=== PATIENT | male | born 1970 | race African-American/Black ===

== ENCOUNTER 2017-01-16 19:34 | Emergency (ER) | payer OTHER ==
[~2017-01-16] VITALS: Ht 172.7 cm; Wt 93.7 kg
[~2017-01-16 19:34] MED LIST: HYDR25TA4 PO; PHEN-905 PO
[2017-01-16 19:37] VITALS: TEMP 37.1; Ht 172.7 cm; Wt 93.7 kg
--- NOTE | 2017-01-16 20:29 | DIAGNOSTIC IMAGING REPORT ---
RIGHT HUMERUS MIN 2 VIEWS ROUTINE CLINICAL HISTORY: Right elbow pain. Possible distal biceps tear. COMPARISON: None FINDINGS: No acute fracture of the right humerus is present. There is joint space narrowing with calcific/ossific densities adjacent to the acromioclavicular joint. Lateral view demonstrates possible abnormal contour with bulging of the biceps. IMPRESSION: 1. No acute fracture of the right humerus. 2. Moderate to severe osteoarthritis of the right acromioclavicular joint. 3. Possible abnormal contour with bulging of the biceps shown on lateral projection. This is suboptimally assessed by radiography but could be due to a distal biceps tear with retraction. Electronically signed by: Leonard Key M.D. 01/16/2017 8:28 PM Dictated Date/Time: 01/16/2017 8:25 PM
--- NOTE | 2017-01-16 20:30 | DIAGNOSTIC IMAGING REPORT ---
RIGHT ELBOW MIN 3 VIEWS ROUTINE CLINICAL HISTORY: Right elbow pain. Possible distal biceps tear. COMPARISON: None FINDINGS: Alignment of the right elbow is anatomic. There is no fracture or joint effusion. There is minimal spurring of the olecranon at the insertion of triceps. IMPRESSION: No acute fracture or joint effusion of the right elbow. Electronically signed by: Leonard Key M.D. 01/16/2017 8:28 PM Dictated Date/Time: 01/16/2017 8:26 PM
[2017-01-16] MEDS ORDERED: IBUP-1050 PO (20:37)
[2017-01-16] MEDS ORDERED: FEXO1TAB49 PO (20:37)
[2017-01-16] MEDS ORDERED: PRLSR20 PO (20:37)
--- NOTE | 2017-01-16 20:53 | EMERGENCY ROOM VISIT NOTE ---
History First contact with patient: 19:36 Chief Complaint: ELBOW PAIN/INJURY Stated Complaint: FALL/ ARM PAIN History of Present Illness The patient is a 46 year old male who presents to the Emergency Room with complaints of right elbow pain. The patient states that he was at work and picked up a heavy trashcan. He states that he felt a sudden pop in his right arm in the elbow area and dropped the trashcan. He reports the pain in the right arm and difficulty flexing the arm. He rates his discomfort as 6/10. He denies any previous issues with this arm. He denies any numbness or weakness. He denies any other injuries. Review of Systems A complete 10 point review of systems was reviewed with the patient with pertinent positives and negatives as per history of present illness. All else were negative. Past Medical/Surgical History Medical Problems: (1) Arthritis (2) Tendonitis Family History Diabetes mellitus FH: heart disease FHx: cancer Hypertension Social History Smoking Status: Never Smoker Alcohol Use: heavy Drug Use: none Marital Status: single Occupation Status: employed Current/Historical Medications Scheduled Hydrochlorothiazide (Hctz), 25 MG PO DAILY Scheduled PRN Fexofenadine Hcl (Amalia Allergy), 1 TAB PO BID PRN for ALLERGIC REACTION Ibuprofen (Advil), 800 MG PO BID PRN for Pain Omeprazole (Prilosec), 20 MG PO DAILY PRN for Dyspepsia Physical Exam Vital Signs Date Time Temp Pulse Resp B/P (MAP) Pulse Ox O2 Delivery O2 Flow Rate FiO2 01/16/17 21:06 66 16 115/72 98 01/16/17 19:37 37.1 76 16 120/88 99 Room Air Physical Exam VITALS: Vitals are noted on the nurse's note and reviewed by myself. Vital signs stable. GENERAL: This is a 46-year-old male, in no acute distress, nondiaphoretic, well- developed well-nourished. HEART: Regular rate and rhythm without murmurs gallops or rubs. LUNGS: Clear to auscultation bilaterally without wheezes, rales or rhonchi. MUSCULOSKELETAL: There is tenderness to palpation in the right antecubital fossa at the insertion of the distal biceps tendon. There is asymmetry of the biceps muscle compared to the left arm. The patient has pain with flexion of the right arm. NEURO: Patient was alert and oriented to person place and time. Medical Decision & Procedures ER Provider Diagnostic Interpretation: RIGHT ELBOW MIN 3 VIEWS ROUTINE FINDINGS: Alignment of the right elbow is anatomic. There is no fracture or joint effusion. There is minimal spurring of the olecranon at the insertion of triceps. IMPRESSION: No acute fracture or joint effusion of the right elbow. RIGHT HUMERUS MIN 2 VIEWS ROUTINE FINDINGS: No acute fracture of the right humerus is present. There is joint space narrowing with calcific/ossific densities adjacent to the acromioclavicular joint. Lateral view demonstrates possible abnormal contour with bulging of the biceps. IMPRESSION: 1. No acute fracture of the right humerus. 2. Moderate to severe osteoarthritis of the right acromioclavicular joint. 3. Possible abnormal contour with bulging of the biceps shown on lateral projection. This is suboptimally assessed by radiography but could be due to a distal biceps tear with retraction. Medical Decision Differential diagnosis includes fracture, sprain, contusion, biceps tendon rupture, among others. The patient was evaluated as above. Physical exam and x-rays are consistent with a rupture of the distal biceps tendon. Patient was placed in an arm sling and will follow-up with orthopedics. Conservative measures were discussed. He verbalized understanding of my assessment and treatment plan and was discharged home in good condition. Medication Reconcilliation Current Medication List: was personally reviewed by me Blood Pressure Screening Patient's blood pressure: Normal blood pressure Impression Primary Impression: Biceps tendon rupture Departure Information Dispostion Home / Self-Care Condition GOOD Referrals No Doctor, Assigned (PCP) Morales Sorensen D.O. Patient Instructions My [facility] Additional Instructions For pain control, you can use the following [id number] medicines (if >12 yo): - Regular strength (325mg/tab) Tylenol (acetaminophen) 2 tabs every 4-6 hours as needed. Do not exceed 12 tablets in a 24 hour period. Avoid taking more than 4 grams (4000 mg) of Tylenol per day. This includes any other sources of acetaminophen you may take on a regular basis. - Regular strength (200 mg/tab) Advil (ibuprofen) 1-2 tabs every 4-6 hours as needed. Do not exceed a dose of 3200 mg per day. Wear the arm sling until follow-up with orthopedics. Call orthopedics on Wednesday to schedule a follow-up appointment next week. Apply ice to the arm for swelling and pain. Return to the emergency department with worsening or new/concerning symptoms. Problem Qualifiers Primary Impression: Biceps tendon rupture Encounter type: initial encounter Laterality: right Qualified Codes: S46.211A - Strain of muscle, fascia and tendon of other parts of biceps, right arm, initial encounter
[2017-01-16 21:06] VITALS: BP 115/72; PULSE 66; O2SAT 98
[2017-01-21] MEDS ORDERED: ACET-1256 PO (14:39)
== END 2017-01-16 21:06 | disposition home or self-care (01) ==
LOC: EDBD 19:34 → C.EDA 19:35
DX: S46.211A Strain of muscle, fascia and tendon of other parts of biceps, right arm, initial encounter (principal); X58.XXXA Exposure to other specified factors, initial encounter; M19.90 Unspecified osteoarthritis, unspecified site; Z79.899 Other long term (current) drug therapy; Z83.3 Family history of diabetes mellitus; Z82.49 Family history of ischemic heart disease and other diseases of the circulatory system; Z80.9 Family history of malignant neoplasm, unspecified

== ENCOUNTER → 2017-01-25 | Day surgery (SDC) | payer OTHER ==
[2017-01-21 14:40] VITALS: Ht 172.7 cm; Wt 93.2 kg
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
[~2017-01-25] VITALS: Ht 172.7 cm; Wt 93.2 kg
[~2017-01-25] MED LIST changes: +ACET-1256 PO; +ATROPINE SULFATE 0.1 MG/ML 5ML SYR IV PRN; +BUPIVACAINE 0.5 % 5 MG/1 ML MPF 30ML VIAL ONE; +BUPIVACAINE/EPINEPHRINE 0.5% MPF 1:200,000 10 ML VIAL ONE; +CEFAZOLIN 2000 MG/60 ML D5W IV SCH; +DEXAMETHASONE SOD INJ 4 MG/ML VIAL ONE; +ESMOLOL HCL 10 MG/ML 10 ML VIAL ONE; +EpHEDrine SULFATE INJ 50 MG/ML AMP IV PRN; +FENTANYL CITRATE INJ 50 MCG/1 ML 2 ML VIAL ONE; +FEXO1TAB49 PO; +HYDROmorphone INJ 0.5 MG/0.5 ML SYR ONE; +HYDROmorphone INJ 1 MG/ML SYR IV PRN; +IBUP-1050 PO; +KETOROLAC TROMETHAMINE 30 MG/ML VIAL ONE; +LABETALOL HCL IV 5 MG/ML 20ML IV ONE; +LACTATED RINGER'S 1000ML 1,000 ML IV SCH; +LIDOCAINE HCL 2% 2 ML VIAL (20MG/ML) ONE; +LIDOCAINE MPF 1% INJ 30 ML SDV (L&D) INFIL ONE; +MIDAZOLAM HCL 1 MG/ML 2ML VIAL ONE; +MoRPHine SULFATE 2 MG/ML CARP IV PRN; +MoRPHine SULFATE 4 MG/ML 1 ML CARP\\VIAL IV PRN; +NURSING VERBAL MED ORDER ONE; +ONDANSETRON INJ 2 MG/ML 2 ML VIAL IV PRN; +ONDANSETRON INJ 2 MG/ML 2 ML VIAL ONE; +OXYCODONE/ACETAMINOPHEN 5-325 TAB PO PRN; -PHEN-905 PO; +PRLSR20 PO; +PROMETHAZINE HCL INJ 6.25 MG in SODIUM CHLORIDE 0.9% 50ML 50 ML IV PRN; +PROPOFOL IV EMULSION 10 MG/ML 20 ML VIAL IV ONE; +SODIUM CHLORIDE 0.9% INJ 10 ML VIAL ONE
--- NOTE | 2017-01-25 06:57 | History & Physical Bridge - SC ---
H&P Re-Evaluation Bridge Note: I have examined the patient, reviewed the History & Physical and in the interval since the performance of the History & Physical I have noted the following changes of clinical significance: No changes noted
--- NOTE | 2017-01-25 12:03 | Discharge Instructions-SurgCtr ---
Discharge Instructions Date of Service Jan 25, 2017. Visit Reason for Visit: Right Distal Biceps Rupture Discharge Discharge Diagnosis / Problem: Status post Right distal biceps repair Discharge Goals Goal(s): Decrease discomfort, Improve function, Increase independence Activity Recommendations Activity Limitations: per Instructions/Follow-up section Lifting Limitations: until after follow-up appointment (No lifting) May Resume Sexual Activity: when tolerated Shower/Bathe: may shower/bathe in 3 days Driving or Machine Use: Not while on narcotics or in splint Anesthesia . Post Anesthesia Instructions: If you have had General Anesthesia or IV Sedation: * Do not drive today. * Resume driving when surgeon permits. * Do not make important decisions or sign legal documents today. * Call surgeon for: 1. Temperature elevations greater than 101 degrees F. 2. Uncontrollable pain. 3. Excessive bleeding. 4. Persistent nausea and vomiting. 5. Medication intolerance (nausea, vomiting or rash). * For nausea and vomiting use only clear liquids such as: tea, soda, bouillon until nausea subsides, then gradually increase diet as tolerated. * If you have any concerns or questions, call your surgeon's office. If physician is unavailable and it is an emergency, call 911 or go to the nearest emergency room. . Instructions / Follow-Up Instructions / Follow-Up Dr. Weston in 10-15 days. PT in 2-3 days. Diet Recommendations Home Diet: resume previous diet Procedures Procedures Performed: Right Distal Biceps Tendon Repair Pending Studies Studies pending at discharge: no Work Instructions Lifting Limitations: no heavy lifting Medical Emergencies . Who to Call and When: Medical Emergencies: If at any time you feel your situation is an emergency, please call 911 immediately. . Non-Emergent Contact Non-Emergency issues call your: Surgeon Call Non-Emergent contact if: temperature is above 101.5, your pain is not controlled, wound has increased drainage, wound has increased redness . . "Provider Documentation" section prepared by Nigel Weston. .
--- NOTE | 2017-01-25 12:09 | [facility] Operative Report ---
Operative Report Operative Date Jan 25, 2017. Pre-Operative Diagnosis Right Distal Biceps Tendon Tear Post-Operative Diagnosis Same Procedure(s) Performed Right Distal Biceps Tendon Repair Surgeon Dr. Weston Anode Machine Operator Surgeon(s) Deidra Zavaleta, Fellow Deidra Quick PA-C Estimated Blood Loss 5 ml Findings Near complete rupture right distal biceps tear. Fluids (cc crystalloids) 1750 Specimens None Drains n/a Anesthesia GET Complication(s) None Disposition Recovery Room / PACU (Stable) Implants JUGGERKNOT 2.9 MM DOUBLE LOADED X2 (BIOMET) Indications The patient is a 46 y.o. male, who sustained a right distal biceps rupture. His options of conservative vs surgical intervention with an open repair were discussed, along with the risks and benefits of both. The patient understands the risks of surgery, which include but are not limited to: bleeding, infection , re-operation, damage to nerves and arteries, failure of the repair, weakness, stiffness, continued pain and DVT. The patient understands all of these instructions and explanations, all of their questions have been satisfactorily addressed. The patient has elected to proceed with surgery and the informed consent was signed. Description of Procedure The patient was taken to the Operating Room and placed in the supine position on the operating table. After general anesthetic was administered a multidisciplinary time-out was performed identifying my initials on the right upper limb as the correct and operative limb. Prior to the incision being made , 2 grams of intravenous Ancef were given. The right arm was prepped and draped in the standard orthopaedic sterile fashion. The planned transverse incision approximately 3 cm distal to the flexion crease of the elbow was marked. The incision was injected with a 50:50 mixture of 1% Lidocaine plain and 0.5% Marcaine plain for a total of 10 cc. The limb was exsanguinated via gravity and a tourniquet was inflated to 250 mmHg. The skin 4 cm incision was made and careful dissection to identify the medial antebrachial cutaneous nerve which was protected throughout. Blunt dissection was also used to find the distal end of the Biceps which still had one small strand connected to the bicipital tuberosity of the radius. The stump was well adhered to scar tissue within the Biceps envelope. The overlying recurrent vessels were ligated with silk ties in the standard fashion. The Radial tuberosity was identified with fluoroscopy, palpation, visualization, and any remaining soft tissue was debrided. The distal stump of the biceps was debrided back to normal tissue with a Metzenbaum scissors. A stay stitch was placed to enable traction. Any further adhesions were bluntly dissected off the tendon, to allow good mobilization of the tendon. The radial tuberosity was then lightly decorticated with a small angel. With the forearm fully supinated two 2.9 mm Juggerknot Suture anchors were placed in the standard fashion in the radial tuberosity 1 cm apart. Then 1 strand from each suture was run up the biceps tendon in a Krackow fashion and they were tied together, the ends of the suture were passed through the tendon and tied on the posterior aspect to leave the anterior not stack flush with the tendon. The other two ends of these sutures were used to reduce the distal biceps to the radial tuberosity. While holding the tendon reduced the other 2 remaining sutures were passed through the tendon and tied, holding the tendon in place. The sutures that were used to reduce the tendon were the passed back through the biceps and tied in the standard fashion. there was excellent tendon contact to the bicipital tuberosity with no gapping noted. The wound was copiously irrigated. There was no tension on the repair with the arm extended to 20 degrees. The tourniquet was released and there was good hemostasis. The subcutaneous layer was closed with 3-0 Vicryl. The skin was closed with 4- 0 Monocryl in a subcuticular fashion without knots. This was then further reinforced with Dermabond. Steri-Strips were placed overtop once the Dermabond was dry. The incision was covered with 4x4's, ABD, sterile cast padding, a posterior splint at 90 degrees of flexion and supinated, and an KAL. A sling was placed. The sponge and needle counts were correct. While he was waking up, his motor to his median, radial, ulnar, AIN, PIN were intact. POST-OP INSTRUCTIONS: Pain medicine prescription was given pre-operatively to be taken as needed. No lifting. The patient is not to remove his splint. PT instructions were given. The patient will follow up with me in 10-15 days. I attest to the content of the Intraoperative Record and any orders documented therein. Any exceptions are noted below. Copy To Mark Anthony Zavaleta M.D.
--- NOTE | 2017-01-25 12:19 | [facility] Operative Report ---
Operative Report Operative Date Jan 25, 2017. Pre-Operative Diagnosis Right Distal Biceps Tendon Tear Post-Operative Diagnosis Same Procedure(s) Performed Right Distal Biceps Tendon Repair Surgeon Dr. Weston Waste Disposal Leakage Tester Surgeon(s) Deidra Zavaleta, Fellow Deidra Quick PA-C Estimated Blood Loss 5 ml Findings SAME Fluids (cc crystalloids) 1750 Specimens None Drains none Anesthesia general Complication(s) None Disposition Recovery Room / PACU Implants see Dr. Weston's note Indications sustained injury to left distal biceps, proper imaging obtained, surgery recommended, consents signed Description of Procedure taken to the OR, prepped and draped, I was present the entire case, please see Dr. Weston's op note for further detail I attest to the content of the Intraoperative Record and any orders documented therein. Any exceptions are noted below.
[2017-01-25] MEDS: FENTANYL CITRATE INJ 50 MCG/1 ML 2 ML VIAL IV PRN ×2 (12:32→12:52)
[2017-01-25 13:15] VITALS: TEMP 37.1
--- NOTE | 2017-01-25 13:32 | Anesthesiology Progress Note ---
Anesthesia Post Op Note Date & Time Jan 25, 2017 at 13:32 Vital Signs Pain Intensity: 8 Vital Signs Past 12 Hours Date Time Temp Pulse Resp B/P (MAP) Pulse Ox O2 Delivery O2 Flow Rate FiO2 01/25/17 13:15 37.1 86 16 139/94 (109) 93 Room Air 01/25/17 13:02 86 19 95 01/25/17 13:02 87 19 01/25/17 13:01 146/91 01/25/17 13:00 37.1 84 16 146/91 94 Room Air 01/25/17 12:57 84 16 94 01/25/17 12:57 85 16 01/25/17 12:56 140/84 01/25/17 12:52 88 8 01/25/17 12:52 86 8 97 01/25/17 12:51 149/100 01/25/17 12:47 89 18 01/25/17 12:47 89 18 94 01/25/17 12:46 160/91 01/25/17 12:42 86 19 01/25/17 12:42 86 19 96 01/25/17 12:41 153/93 01/25/17 12:37 90 13 90 01/25/17 12:37 88 13 01/25/17 12:36 144/96 01/25/17 12:34 88 0 01/25/17 12:34 87 0 99 01/25/17 12:31 148/98 01/25/17 12:29 90 17 99 01/25/17 12:29 91 17 01/25/17 12:26 150/101 01/25/17 12:24 100 17 01/25/17 12:24 102 17 01/25/17 12:21 156/102 01/25/17 12:19 36.5 100 20 156/102 98 Diffusion Mask 6 01/25/17 06:45 36.6 86 20 136/107 (117) 94 Room Air Notes Mental Status: alert / awake / arousable, participated in evaluation Pt Amnestic to Procedure: Yes Nausea / Vomiting: adequately controlled Pain: adequately controlled Airway Patency, RR, SpO2: stable & adequate BP & HR: stable & adequate Hydration State: stable & adequate Anesthetic Complications: no major complications apparent
[2017-01-25 13:45] VITALS: BP 139/89; PULSE 82; O2SAT 94
== END | disposition home or self-care (01) ==
LOC: X.SURG 06:28
PROVIDERS: ATTEND Orthopaedic Surgery Sports Medicine
DX: S46.211A Strain of muscle, fascia and tendon of other parts of biceps, right arm, initial encounter (principal); X50.0XXA Overexertion from strenuous movement or load, initial encounter; I10 Essential (primary) hypertension; F17.210 Nicotine dependence, cigarettes, uncomplicated; Z79.899 Other long term (current) drug therapy

== ENCOUNTER 2018-01-25 19:17 | Emergency (ER) | payer OTHER ==
[~2018-01-25] VITALS: Ht 172.7 cm; Wt 96.9 kg
[~2018-01-25 19:17] MED LIST changes: -ATROPINE SULFATE 0.1 MG/ML 5ML SYR IV PRN; -BUPIVACAINE 0.5 % 5 MG/1 ML MPF 30ML VIAL ONE; -BUPIVACAINE/EPINEPHRINE 0.5% MPF 1:200,000 10 ML VIAL ONE; -CEFAZOLIN 2000 MG/60 ML D5W IV SCH; -DEXAMETHASONE SOD INJ 4 MG/ML VIAL ONE; -ESMOLOL HCL 10 MG/ML 10 ML VIAL ONE; -EpHEDrine SULFATE INJ 50 MG/ML AMP IV PRN; -FENTANYL CITRATE INJ 50 MCG/1 ML 2 ML VIAL ONE; -HYDROmorphone INJ 0.5 MG/0.5 ML SYR ONE; -HYDROmorphone INJ 1 MG/ML SYR IV PRN; -KETOROLAC TROMETHAMINE 30 MG/ML VIAL ONE; -LABETALOL HCL IV 5 MG/ML 20ML IV ONE; -LACTATED RINGER'S 1000ML 1,000 ML IV SCH; -LIDOCAINE HCL 2% 2 ML VIAL (20MG/ML) ONE; -LIDOCAINE MPF 1% INJ 30 ML SDV (L&D) INFIL ONE; -MIDAZOLAM HCL 1 MG/ML 2ML VIAL ONE; -MoRPHine SULFATE 2 MG/ML CARP IV PRN; -MoRPHine SULFATE 4 MG/ML 1 ML CARP\\VIAL IV PRN; -NURSING VERBAL MED ORDER ONE; -ONDANSETRON INJ 2 MG/ML 2 ML VIAL IV PRN; -ONDANSETRON INJ 2 MG/ML 2 ML VIAL ONE; -OXYCODONE/ACETAMINOPHEN 5-325 TAB PO PRN; -PROMETHAZINE HCL INJ 6.25 MG in SODIUM CHLORIDE 0.9% 50ML 50 ML IV PRN; -PROPOFOL IV EMULSION 10 MG/ML 20 ML VIAL IV ONE; -SODIUM CHLORIDE 0.9% INJ 10 ML VIAL ONE
[2018-01-25 19:19] VITALS: TEMP 36.4; Ht 172.7 cm; Wt 96.9 kg
--- NOTE | 2018-01-25 19:40 | EMERGENCY ROOM VISIT NOTE ---
History First contact with patient: 19:22 Chief Complaint: ANKLE PAIN Stated Complaint: INJURED ANKLE History of Present Illness The patient is a 47 year old male who presents to the Emergency Room with complaints of severe pain into the right ankle and foot for the last 3 days. He denies any injury. He woke up with the pain. He has tried ibuprofen with minimal relief. He also has tried an Jesus Manuel wrap. The patient intermittently gets pain in this area. He is able to bear weight. The pain is worse with dorsiflexion and plantarflexion. He denies any fever or chills. Review of Systems 6 system review negative. Please see pertinent positives in the history of present illness section. Past Medical/Surgical History Medical Problems: (1) Arthritis (2) Tendonitis Family History Diabetes mellitus FH: heart disease FHx: cancer Hypertension Social History Smoking Status: Current Every Day Smoker Alcohol Use: heavy Drug Use: marijuana Marital Status: single Occupation Status: employed Current/Historical Medications Scheduled Hydrochlorothiazide (Hctz), 25 MG PO QAM Scheduled PRN Acetaminophen (Tylenol), 1,000 MG PO Q6H PRN for Pain Ibuprofen (Advil), 800 MG PO BID PRN for Pain Physical Exam Vital Signs Date Time Temp Pulse Resp B/P (MAP) Pulse Ox O2 Delivery O2 Flow Rate FiO2 01/25/18 19:19 36.4 78 20 153/91 97 Room Air Physical Exam VITALS: Vitals are noted on the nurse's note and reviewed by myself. Vital signs stable. GENERAL: 47-year-old male, in no acute distress, nondiaphoretic, well-developed well-nourished. SKIN: The skin was without rashes, erythema, edema, or bruising. HEAD: Normocephalic atraumatic. MUSCULOSKELETAL: RLE: Tenderness to palpation over the medial malleolus. Tenderness to palpation over the extensor tendons/proximal dorsum of the right foot. DP pulse +2. No tenderness over the lateral malleolus. Pain with dorsiflexion and to a lesser extent plantarflexion. No pain over the first MTP joint. Capillary refill in the toes is intact. Sensation in the toes is intact. No tenderness over the proximal tibia or fibula. NEURO: Patient was alert and oriented to person place and time. Normal sensation to touch. No focal neurological deficits. Medical Decision & Procedures ER Provider Diagnostic Interpretation: Right ankle/foot x-rays IMPRESSION: 1. No acute fractures 2. Fourth metatarsal periosteal thickening/spurring which appears chronic. 3. Mild degenerative change Electronically signed by: Matty Holland M.D. 01/25/2018 8:14 PM Dictated Date/Time: 01/25/2018 8:13 PM The status of this report is Signed. Draft = Not yet reviewed or approved by Radiologist. Signed = Reviewed and approved by Radiologist. IMPRESSION: 1. No acute fractures 2. Subtle lucency involving the medial talar dome. Osteochondral is desiccated cannot be excluded. Electronically signed by: Matty Holland M.D. 01/25/2018 8:12 PM Dictated Date/Time: 01/25/2018 8:10 PM The status of this report is Signed. Draft = Not yet reviewed or approved by Radiologist. Signed = Reviewed and approved by Radiologist. CT right lower extremity without contrast IMPRESSION: 1. No acute fractures 2. Chronic spurring involving the proximal third fourth metatarsals 3. Chronic navicular spurring 4. Subchondral cystic changes within the medial patellar dome likely representing an old osteochondral lesion. There are secondary arthritic changes the tibiotalar joint Electronically signed by: Matty Holland M.D. 01/25/2018 8:55 PM Dictated Date/Time: 01/25/2018 8:48 PM The status of this report is Signed. Draft = Not yet reviewed or approved by Radiologist. Signed = Reviewed and approved by Radiologist. ED Course The patient was seen and examined Imaging was performed and reviewed The patient was reassessed and resting comfortably. We discussed his results. He voiced understanding, was comfortable being discharged home. The patient was fitted for a walking boot He was given a home pack of Friendship Discharge instructions were reviewed, and he was discharged in good condition Medical Decision Differential diagnosis: Fracture, strain, lesion, gout, infection among others were entertained This patient is a 47-year-old male that presents to the emergency department complaining of ongoing right foot and ankle pain. On exam, he did have some tenderness without any gross deformity. Ultimately, a CT was performed. There are chronic changes involving the talar bone, navicular bone and several metatarsals. I believe this is a source of his discomfort. There were no acute fractures or dislocations. The patient was fitted in a walking boot. He was given a short course of narcotics, and told to continue taking ibuprofen. He will call Dr. Weston in the morning for follow-up Of note, the patient has run out of his hydrochlorothiazide. He was given a 2- week course, and told to follow-up with his PCP. This chart was completed in part utilizing [employer] Speech Voice Recognition software. Attempts were made to minimize the grammatical errors, random word insertions, pronoun errors and incomplete sentences. Any formal questions or concerns about the content, text or information contained within the body of this dictation should be directly addressed to the provider for clarification. Medication Reconcilliation Current Medication List: was personally reviewed by me Blood Pressure Screening Patient's blood pressure: Elevated blood pressure Impression Primary Impression: Right foot pain Departure Information Dispostion Home / Self-Care Condition GOOD Prescriptions Hydrochlorothiazide (HCTZ) 25 Mg Tab 1 TAB PO DAILY for 14 Days, #14 TAB Prov: Anika Cardenas PA-C 01/25/18 Hydrocodone/Acetaminophen 5MG/325MG (Friendship 5MG/325MG) Tab 1-2 TABLET PO Q4H Y for Pain, #15 TAB For Initial Treatment Prov: Anika Cardenas PA-C 01/25/18 Referrals Nigel Weston MD (PCP) Patient Instructions My [facility] Additional Instructions You presented to the emergency department complaining of right foot pain. You have some chronic changes in the foot that should be followed up by an orthopedic doctor. Please call Dr. Weston in the morning Ibuprofen 600 mg every 6 hours Friendship 1-2 tabs every 4 hours for severe pain. Do not drink alcohol or drive while taking this medication. This may be taken with ibuprofen, but avoid Tylenol. Please apply ice for 20-minute intervals, elevate the foot and use the boot when up and about Please do not hesitate to return to the emergency department with any new, worsening or concerning symptoms Was a pleasure participating in your care tonight Work Instructions Return To Work: 2 days
--- NOTE | 2018-01-25 20:13 | DIAGNOSTIC IMAGING REPORT ---
R ANKLE MIN 3 VIEWS ROUTINE CLINICAL HISTORY: Right ankle pain COMPARISON: None. DISCUSSION: No acute fractures are visualized. There is subtle lucency involving the medial talar dome. Osteochondritis dissecans cannot be excluded. If the patient has persistent pain, a nonemergent MRI study could be obtained in follow-up. There is a tiny anterior spur arising from the tibial plafond. There is a tiny anterior loose body. IMPRESSION: 1. No acute fractures 2. Subtle lucency involving the medial talar dome. Osteochondral is desiccated cannot be excluded. Electronically signed by: Matty Holland M.D. 01/25/2018 8:12 PM Dictated Date/Time: 01/25/2018 8:10 PM
--- NOTE | 2018-01-25 20:16 | DIAGNOSTIC IMAGING REPORT ---
R FOOT MIN 3 VIEWS ROUTINE CLINICAL HISTORY: Right foot pain COMPARISON: None. DISCUSSION: No acute fractures are visualized. There is spurring at the base of the fourth metatarsal which appears chronic. No destructive lesions are visualized. There are mild degenerative changes most pronounced the level the first metatarsal phalangeal joint. IMPRESSION: 1. No acute fractures 2. Fourth metatarsal periosteal thickening/spurring which appears chronic. 3. Mild degenerative change Electronically signed by: Matty Holland M.D. 01/25/2018 8:14 PM Dictated Date/Time: 01/25/2018 8:13 PM
--- NOTE | 2018-01-25 20:57 | DIAGNOSTIC IMAGING REPORT ---
CT R LOWER EXTREMITY WITHOUT CT DOSE: 215.97 mGy.cm CLINICAL HISTORY: Right ankle pain. Abnormal x-ray. TECHNIQUE: Helical images were acquired in the transverse plane. Sagittal and coronal reformatted images were acquired. A dose lowering technique was utilized adhering to the principles of ALARA. COMPARISON STUDY: Conventional x-ray dated 01/25/2018 FINDINGS: No acute fractures are visualized. There is chronic spurring of the proximal third and fourth metatarsals. There is chronic navicular spurring. There is subchondral cystic change within the medial talar dome measuring 1 cm]. This likely represents an old osteochondral lesion. There are secondary arthritic changes within the tibiotalar joint. IMPRESSION: 1. No acute fractures 2. Chronic spurring involving the proximal third fourth metatarsals 3. Chronic navicular spurring 4. Subchondral cystic changes within the medial patellar dome likely representing an old osteochondral lesion. There are secondary arthritic changes the tibiotalar joint Electronically signed by: Matty Holland M.D. 01/25/2018 8:55 PM Dictated Date/Time: 01/25/2018 8:48 PM
[2018-01-25] MEDS ORDERED: HYDR-5688 PO (21:09)
[2018-01-25] MEDS ORDERED: HYDR25TA4 PO (21:12)
[2018-01-25] MEDS ORDERED: NORCO 5/325MG HOME PACK PO ONE (21:15)
[2018-01-25 21:20] VITALS: BP 155/82; PULSE 85; O2SAT 98
== END 2018-01-25 21:15 | disposition home or self-care (01) ==
LOC: C.EDB 19:18 → C.EDD 21:15
DX: M79.671 Pain in right foot (principal); M19.90 Unspecified osteoarthritis, unspecified site; M77.9 Enthesopathy, unspecified; F17.210 Nicotine dependence, cigarettes, uncomplicated